=== PATIENT | female | born 1990 | race African-American/Black ===

== ENCOUNTER 2016-08-09 21:31 | Emergency (ER) | payer OTHER ==
--- NOTE | ~2016-08-09 | CR93 ---
[facility] A Service [facility] RADIOLOGY TEXT RESULTS PATIENT: YUMIKO DOUGLAS LOCATION: SED : 91 UNIT #: [id number] AGE: [address]: Hany Suarez MD SEX: F ORDER DR: [id number] [place] [id number] E MR#: [id number] Acc #: [id number] NAME: YUMIKO DOUGLAS : 1990 SEX: F STUDY DATE/TIME: 08/09/2016 21:27 UNIT: SED ROOM: STUDY DESCRIPTION: CR Elbow Min 3 Views Lt Attending Physician: Hany Suarez M.D. Ordering Physician: Hany Suarez M.D. Primary Care Physician: No Primary Care Physician MEDICAL IMAGING REPORT This report is preliminary unless electronic signature is present. EXAM Left elbow, 3 views. DATE OF EXAM 08/09/2016 HISTORY Elbow pain after injury 2 days ago. FINDINGS AP and lateral examination of the elbow shows satisfactory articulation of the humerus with the proximal radius and ulna. There is no identifiable fracture, dislocation, joint effusion, or radiopaque foreign body in the soft tissues. IMPRESSION Normal left elbow. Dictated by... Doroteo Jean M.D. THIS IS AN ELECTRONICALLY VERIFIED REPORT Doroteo Jean M.D. at 08/10/2016 9:12 AM JAIR/venancio TD: 08/09/2016 23:57 JOB #: [id number] MEDICAL IMAGING REPORT [facility] A Service [facility] RADIOLOGY TEXT RESULTS PATIENT: YUMIKO DOUGLAS LOCATION: SED : 91 UNIT #: [id number] AGE: [address]: Hany Suarez MD SEX: F ORDER DR: Page 1 of 1
[~2016-08-09 21:31] MED LIST: NO MEDICATIONS
== END 2016-08-09 22:31 | disposition home or self-care (01) ==
LOC: SED 21:31
DX: S53.402A Unspecified sprain of left elbow, initial encounter (principal); J45.909 Unspecified asthma, uncomplicated; F17.200 Nicotine dependence, unspecified, uncomplicated; X58.XXXA Exposure to other specified factors, initial encounter; Y92.009 Unspecified place in unspecified non-institutional (private) residence as the place of occurrence of the external cause
CPT/HCPCS: 73080; 99283